=== PATIENT | female | born 2000 | race Hispanic/Latino ===

== ENCOUNTER 2021-07-20 22:12 | Emergency (ER) | payer SELFPAY ==
[2021-07-20] MEDS ORDERED: Bupivacaine 0.5% 10 ML VIAL ONE (23:01)
== END 2021-07-20 23:58 | disposition home or self-care (01) ==
LOC: ERS 22:12
DX: S62.317A Displaced fracture of base of fifth metacarpal bone, left hand, initial encounter for closed fracture (principal); W19.XXXA Unspecified fall, initial encounter
CPT/HCPCS: 29125; J3490